=== PATIENT | female | born 1980 | race Caucasian/White ===

== ENCOUNTER 2021-01-12 15:58 | Emergency (ER) | payer OTHER ==
[~2021-01-12] VITALS: Ht 154.9 cm; Wt 59.0 kg
[~2021-01-12 15:58] MED LIST: CALCIUM +D & M1 EAC1; MULTIVITAMINS1 EAC7
[2021-01-12] MEDS ORDERED: CEPHALEXIN500 MG PO (17:30)
[2021-01-12] MEDS ORDERED: CENTANY30 GM TOP (17:30)
[2021-01-12 17:38] VITALS: BP 115/74
== END 2021-01-12 17:38 | disposition home or self-care (01) ==
LOC: M.ERS 15:58
DX: S80.862A Insect bite (nonvenomous), left lower leg, initial encounter (principal); S80.861A Insect bite (nonvenomous), right lower leg, initial encounter; Z98.890 Other specified postprocedural states; W57.XXXA Bitten or stung by nonvenomous insect and other nonvenomous arthropods, initial encounter; Y93.89 Activity, other specified; Y92.89 Other specified places as the place of occurrence of the external cause; Y99.8 Other external cause status